=== PATIENT | male | born 1975 | race Caucasian/White ===

== ENCOUNTER 2020-01-19 18:11 | Emergency (ER) | payer SELFPAY ==
[~2020-01-19] VITALS: Ht 165.1 cm; Wt 68.0 kg
[2020-01-19 18:12] VITALS: BP 140/90
[2020-01-19] MEDS ORDERED: Cephalexin 500mg cap ORAL ONE (18:15)
--- NOTE | 2020-01-19 18:17 | NUR ---
ED Nurse Note: Patient brought in by RA 58 for ETOH intoxication, aao x 4, ambulatory. Patient presented with strong smell of alcohol, has abrasion on his left foot.
[2020-01-19] MEDS ORDERED: Cephalexin 500mg cap ONE (18:23)
--- NOTE | 2020-01-19 18:23 | Emergency Room Report ---
History of Present Illness General Chief Complaint: Alcohol Intoxication Source: Patient, EMS Present Illness HPI 44-year-old male with unknown past medical history brought in by paramedics due to alcohol intake. Patient appears to be ambulatory, remembers his name and the fact that he lives in the [place]. Patient also reports that [facility] on left lower extremity. Appears to walk with steady gait however obvious that is under the influence of alcohol. Able to take oral hydration. Speaks in full sentences. No signs of trauma noted. Denies chest pain, shortness of breath, headache and dizziness. When given the facemask to apply to his face he does it without any help and he is in the correct way. After consultation examination was finished patient asked for the Bactroban so he can use the restroom. All indicating that patient is ambulatory okay to be discharged without IV hydration and further evaluation at this time. Allergies: Coded Allergies: No Known Allergies (Unverified , 01/19/20) COVID-19 Screening Contact w/high risk pt: No Recent Travel to affected area: No Experienced COVID-19 symptoms?: No COVID-19 Testing performed STAIN WIPER: No Patient History Past Medical History: see triage record Past Surgical History: unable to obtain Pertinent Family History: unable to obtain Social History: Reports: alcohol use Reviewed Nursing Documentation: PMH: Agreed; PSxH: Agreed Nursing Documentation-PMH Past Medical History Deferred: Pt Cognitively Impaired Past Medical History: No History, Except For History Of Psychiatric Problem: Yes Review of Systems All Other Systems: negative except mentioned in HPI Physical Exam Vital Signs Date Time Temp Pulse Resp B/P (MAP) Pulse Ox O2 Delivery O2 Flow Rate FiO2 01/19/20 18:05 97.9 80 16 140/90 (107) 100 Room Air Sp02 EP Interpretation: reviewed General Appearance: no apparent distress Head: normocephalic, atraumatic ENT: hearing grossly normal, normal voice Neck: full range of motion, supple Respiratory: lungs clear, no respiratory distress, speaking full sentences Cardiovascular #1: normal inspection, no edema Gastrointestinal: normal inspection, soft Musculoskeletal: gait/station normal Neurologic: alert, oriented Psychiatric: judgement/insight normal Skin: no rash Lymphatic: no adenopathy Medical Decision Making PA Attestation All my diagnosis and treatment plans were reviewed ad discussed with my supervising physician Dr. Orozco Diagnostic Impression: Primary Impression: Alcohol abuse Additional Impression: Infected abrasion ER Course 44-year-old male with unknown past medical history brought in by paramedics due to alcohol intake. Patient appears to be ambulatory, remembers his name and the fact that he lives in the [place]. Patient also reports that [facility] on left lower extremity. Appears to walk with steady gait however obvious that is under the influence of alcohol. Able to take oral hydration. Speaks in full sentences. No signs of trauma noted. Denies chest pain, shortness of breath, headache and dizziness. When given the facemask to apply to his face he does it without any help and he is in the correct way. After consultation examination was finished patient asked for the Bactroban so he can use the restroom. All indicating that patient is ambulatory okay to be discharged without IV hydration and further evaluation at this time. Ddx considered but are not limited to: Alcohol intoxication with altered level of consciousness, alcohol intoxication causing pancreatitis, alcohol abuse, multi drug use and alcohol intoxication Vital signs: are WNL, pt. is afebrile H&PE are most consistent with: Alcohol abuse, infected abrasion left lower extremity ORDERS: Keflex ER intervention: keflex DISCHARGE: At this time pt. is stable for d/c to home. Will provide printed patient care instructions, and any necessary prescriptions. Care plan and follow up instructions have been discussed with the patient prior to discharge. Patient was given fluids and oral hydration however patient refused to take it with time. Patient stable to be discharged. Last Vital Signs Date Time Temp Pulse Resp B/P (MAP) Pulse Ox O2 Delivery O2 Flow Rate FiO2 01/19/20 18:12 97.9 16 140/90 100 Room Air 01/19/20 18:12 80 Disposition: HOME, SELF-CARE Condition: Stable Scripts Cephalexin* (KEFLEX*) 500 Mg Capsule 500 MG ORAL EVERY 6 HOURS for 7 Days, #28 CAP Prov: Ingrid Vazquez 01/19/20 Patient Instructions: Abrasion, [id number], Alcohol Abuse and Nutrition Additional Instructions: Take medication as directed, increase oral hydration, follow-up primary doctor, if worsening symptoms return to the emergency room Ingrid Vazquez Jan 19, 2020 18:23
[2020-01-19] MEDS ORDERED: CEPHALEXIN500 MG ORAL (18:24)
[2020-01-19 18:30] VITALS: BP 140/90
--- NOTE | 2020-01-19 18:31 | NUR ---
ED Nurse Note: Pt cleared by health care Provider for discharge. DC instructions/prescription was given and explained to pt and verbalized understanding of teachings. All medical deviecs such as ID band removed. Pt is AAO x4, ambulatory and left with all personal belongings.
== END 2020-01-19 18:30 | disposition home or self-care (01) ==
LOC: EDBD 18:11 → EMR 18:25
DX: S80.812A Abrasion, left lower leg, initial encounter (principal); F10.10 Alcohol abuse, uncomplicated; L08.9 Local infection of the skin and subcutaneous tissue, unspecified; X58.XXXA Exposure to other specified factors, initial encounter; Y92.9 Unspecified place or not applicable
CPT/HCPCS: 99283